=== PATIENT | male | born 1955 | race Caucasian/White ===

== ENCOUNTER 2019-01-26 13:46 | Observation (INO) | payer MEDICARE, MEDICAID ==
[~2019-01-26 13:46] MED LIST: ISOVUE-370 76%-LOCM 1 ML ONE
--- NOTE | 2019-01-26 14:33 | CT ---
CT PULMONARY ANGIOGRAM WITH IV CONTRAST AND 3-D POSTPROCESSING: HISTORY:Chest pain FINDINGS: There is good contrast opacification of the pulmonary arterial vasculature without filling defects to suggest pulmonary embolism. The thoracic aorta is well opacified without aneurysm or dissection. No pleural or pericardial effusions are seen. No pneumothoraces or lung nodules are noted. There are mild patchy groundglass opacities at the lung bases. There are degenerative changes in the spine. The distal esophagus appears distended. 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 IMPRESSION: No CT evidence of pulmonary embolism.
[2019-01-26] MEDS ORDERED: Vancomycin HCl 1.5 GM in Sodium Chloride 0.9% 250 ML 300 ML IVPB SCH (15:15)
[2019-01-26] MEDS ORDERED: Diabetic Tussin 200 MG/10 ML UDCUP PO PRN (16:29)
[2019-01-26] MEDS ORDERED: Cepastat Lozenges 1 LOZ PO PRN (16:29)
[2019-01-26] MEDS ORDERED: hydrALAZINE 20 MG/ML VIAL SLOW IVP PRN (16:29)
[2019-01-26] MEDS ORDERED: Loratadine 10 MG TAB PO PRN (16:29)
[2019-01-26] MEDS ORDERED: Bisacodyl 10 MG SUPP PR PRN (16:29)
[2019-01-26] MEDS ORDERED: Acetaminophen 650 MG Suppository PR PRN (16:29)
[2019-01-26] MEDS ORDERED: Calcium Carbonate 500 MG ChewTAB PO PRN (16:29)
[2019-01-26] MEDS ORDERED: Loperamide HCl 2 MG CAP PO PRN (16:29)
[2019-01-26] MEDS ORDERED: Acetaminophen 325 MG TAB PO PRN (16:29)
[2019-01-26] MEDS ORDERED: HYDROcodone/Acetaminophen 5/325 mg Tablet PO PRN (16:29)
[2019-01-26] MEDS ORDERED: Zolpidem Tartrate 5 MG TAB PO PRN (16:29)
[2019-01-26] MEDS ORDERED: Artificial Tears 18 DROP/0.9 ML EA EYE PRN (16:29)
[2019-01-26] MEDS ORDERED: Ondansetron PF 4 MG/2 ML Vial IVP PRN (16:29)
[2019-01-26] MEDS ORDERED: Senokot S 8.6-50 MG TAB PO PRN (16:29)
[2019-01-26] MEDS ORDERED: Ondansetron ODT 4 MG TAB PO PRN (16:29)
[2019-01-26 16:58] VITALS: BMI 40.9
[2019-01-26] MEDS ORDERED: cefTRIAXone\\ROCEPHIN 1 GM in Sodium Chloride 0.9% 100 ML IVPB SCH (17:00)
[2019-01-26] MEDS: Sodium Chloride 0.9% 1,000 ML IV SCH (17:02)
--- NOTE | 2019-01-26 17:13 | HP ---
PRIMARY CARE PHYSICIAN: Dr. You. REASON FOR ADMISSION: Transferred from [facility] for dysphagia and cellulitis. HISTORY OF PRESENT ILLNESS: A 63-year-old male who has underlying history of morbid obesity, who required right above-knee amputation, who was evaluated at [facility] for difficulty swallowing. The patient reports that yesterday he ate chicken and after that he had a macaroni and cheese, and he was not able to swallow. He was feeling some sticking sensation in substernal area in lower part. The patient describes his discomfort about 2/10, and the patient reports that he cannot swallow anything, and that is why he went to local emergency room for evaluation. In the emergency room, the patient had a chest x-ray and CT angiography, which were negative for any acute process. The patient also had routine blood test at [facility], which showed normal CBC and normal BMP and LFT. The patient denies any food stuck. He denies any weight loss. He denies any nausea, vomiting, or hematemesis. He denies any constipation, diarrhea, melena, or hematochezia. The patient reports that lately, he broke his prosthesis, and since then, he is wheelchair-bound and he had two cut in his left lower extremity from his wheelchair. He does report that he has chronic venous insufficiency, and his left lower extremity is chronically red. He denies any tenderness, fever, or chills. He denies any constipation, diarrhea, melena, or hematochezia. The patient is being admitted for observation. Com Writer evaluated this patient and the patient is planned for upper endoscopy later on today. The patient will be observed in hospital after procedure as well as to give him antibiotic therapy for cellulitis. REVIEW OF SYSTEMS: CONSTITUTIONAL: Negative for weight loss or gain, ability to conduct usual activities. SKIN: Negative for rash, itching. EYES: Negative for double vision, pain. ENT/MOUTH: Negative for nose bleeding, neck stiffness, pain, tenderness. CARDIOVASCULAR: Negative for palpitations, dyspnea on exertion, orthopnea. RESPIRATORY: Negative for shortness of breath, wheezing, cough, hemoptysis, fever or night sweats. GASTROINTESTINAL: Negative for poor appetite, abdominal pain, heartburn, nausea, vomiting, constipation, or diarrhea. GENITOURINARY: Negative for urgency, frequency, dysuria, nocturia. MUSCULOSKELETAL: Negative for pain, swelling. NEUROLOGIC/PSYCHIATRIC: Negative for anxiety, depression. ALLERGY/IMMUNOLOGIC: Negative for skin rash, bleeding tendency. Please see my HPI for pertinent positives and negatives. All other review of systems reviewed and negative except as mentioned in HPI. PAST MEDICAL HISTORY: History of right above-knee amputation, COPD, morbid obesity, hypertension, dyslipidemia, final stenosis. PAST SURGICAL HISTORY: Right above-knee surgery, right thumb surgery, history of bilateral knee surgery. PAST PSYCHIATRIC HISTORY: Anxiety and depression. SOCIAL HISTORY: The patient is living at [facility]. He drinks alcohol occasionally. He smokes about 1 to 2 packs per day. He denies any other illicit drug abuse. FAMILY HISTORY: No family history of coronary artery disease, stroke, or cancer. ALLERGIES: NO KNOWN DRUG ALLERGIES. CURRENT HOME MEDICATIONS: 1. Toprol-XL 12.5 mg twice daily. 2. Lisinopril 10 mg daily. 3. Flovent HFA one puff inhalation b.i.d. 4. Fluoxetine 40 mg daily. 5. Triamcinolone topical cream twice daily. 6. Vitamin D3 1000 units p.o. twice daily. 7. Simvastatin 10 mg p.o. daily. 8. Singulair 10 mg p.o. daily. EMERGENCY ROOM COURSE: The patient was given Ancef at other emergency room. The patient received vancomycin in our emergency room. PHYSICAL EXAMINATION: VITAL SIGNS: Currently, blood pressure 135/86, pulse 55, respiratory rate 20, temperature 97.8, saturation 95% on room air. Weight 127 kg. GENERAL: The patient is currently alert and oriented, no acute distress. HEENT: Head; normocephalic and atraumatic. Eyes; pupils are round, reactive to light. Extraocular muscle intact. ENT; oropharynx within normal limits. Moist mucous membranes. No oral lesion. No pharyngeal erythema. No exudate. NECK: Supple. No JVD. No thyromegaly. No carotid bruit. No jugular venous distention. LUNGS: Clear to auscultation without any rhonchi or rales. CARDIAC: S1 and S2 appears regular. No murmur. No gallop. No rub. ABDOMEN: Morbid obesity. Limiting examination. Bowel sounds present. Nontender. Nondistended. No organomegaly. No mass. No suprapubic tenderness. BACK: Unremarkable. No CVA tenderness. EXTREMITIES: Upper extremity, passive movement of all joints are normal. Lower extremity, right above-knee amputation. Left lower extremity noted two skin cut as well as erythema and swelling noted on left lower extremity with chronic skin changes on the left lower extremity. NEUROLOGIC: Nonfocal examination. SIGNIFICANT LABORATORY DATA: Chest x-ray based on my review, no acute cardiopulmonary process. CT angiography based on my review, no pulmonary embolism. CBC; WBC 9.6, hemoglobin 13.3, platelets 267. BMP; sodium 135, potassium 4.5, chloride 96, carbon dioxide 29, BUN 11, creatinine 0.77, glucose 130, calcium 9.4. LFT; AST 10, ALT 11, alkaline phosphatase 139, and albumin 4.1. Troponin less than 0.010. Lipase 20. ASSESSMENT AND PLAN: 1. Dysphagia, unclear etiology, suspected from food infection. Gastroenterology consulted and planning for EGD. After EGD, he will start diet as tolerated. 2. Left lower extremity cellulitis. The patient has chronic venous insufficiency and he has two skin cut in that area and erythema has worsen. We will continue with Rocephin 1 g q.24 hours and vancomycin as per pharmacy adjusted dose. Upon discharge, we will consider changing to Keflex. 3. Morbid obesity. Dietary education given. Weight loss education given. 4. Hypertension. We will continue lisinopril 10 mg daily. 5. Metoprolol 12.5 mg twice daily. 6. Dyslipidemia. We will continue Zocor 10 mg p.o. daily. 7. Anxiety and depression. We will continue Prozac 40 mg daily. 8. Vitamin D deficiency. We will continue vitamin D3 2000 units p.o. daily. 9. Chronic obstructive pulmonary disease. We will continue Dulera 2 puff inhalations b.i.d. DuoNeb q.6 hourly p.r.n. 10. Deep venous thrombosis prophylaxis. The patient will be given SCD boots as tolerated and Lovenox 40 mg subcu daily. 11. GI prophylaxis. Pepcid 20 mg p.o. b.i.d. CODE STATUS: The patient is full code. The patient does not have any surrogate decision maker. DISPOSITION PLAN: Based on clinical course, likely 24 hours. Plan of care discussed with the patient in detail. Job ID: [id number]
[2019-01-26] MEDS: Mometasone/Formoterol 120 PUFF INHALER INH SCH (19:44)
[2019-01-26] MEDS ORDERED: Famotidine 20 MG TAB PO SCH (21:00)
[2019-01-26] MEDS ORDERED: Famotidine/PF 20 mg/2ml Vial SLOW IVP SCH (21:00)
[2019-01-26] MEDS ORDERED: Simvastatin 5 MG TAB PO SCH (21:00)
[2019-01-26] MEDS ORDERED: Ondansetron PF 4 MG/2 ML Vial ONE (22:26)
[2019-01-26] MEDS ORDERED: Ondansetron HCl/PF 4 MG/2 ML Vial IVP PRN (22:29)
[2019-01-26] MEDS ORDERED: Promethazine HCl 25 MG/ML VIAL SLOW IVP PRN (22:29)
[2019-01-26] MEDS ORDERED: Promethazine HCl 25 MG/ML VIAL IM PRN (22:29)
[2019-01-26] MEDS: Metoprolol Tartrate 25 MG TAB PO SCH (23:03)
[2019-01-26] MEDS ORDERED: Sodium Chloride 0.9% (PF) 10 ML VIAL FS PRN (23:29)
[2019-01-26] MEDS ORDERED: Pantoprazole 40 MG VIAL IVP SCH (23:30)
[2019-01-27] MEDS: Sodium Chloride 0.9% 1,000 ML IV SCH ×2 (03:35→13:01)
[2019-01-27 06:12] LABS: #Eosinphils 0.2 thou/uL (0.0-0.7); #Lymphocytes 1.8 thou/uL (1.20-3.40); #Monocytes 0.6 thou/uL (0.11-0.59); #Neutrophils 6.8 thou/uL (1.40-6.50); %Basophils 0.1 % (0.0-1.0); %Eosinophils 1.9 % (0.0-10.0); %Lymphocytes 19.2 % (21.0-51.0); %Monocytes 6.4 % (0.0-10.0); %Neutrophils 72.4 % (42.0-75.0); Hemoglobin 12.9 g/dL (14.0-18.0); Mean Corpuscular HGB CONC 32.8 g/dL (32.0-36.0); Mean Corpuscular Hemoglobin 29.6 pg (27.0-31.0); Mean Corpuscular Volume 90.4 fL (78.0-98.0); Mean Platelet Volume 6.9 fL (7.4-10.4); Platelet Count 219 thou/uL (130-400); Red Blood Cell (RBC) Count 4.36 mill/uL (4.70-6.10); White Blood Cell (WBC) Count 9.4 thou/uL (4.8-10.8)
[2019-01-27 06:34] LABS: ALT (SGPT) 9 U/L (8-55); AST (SGOT) 10 U/L (5-34); Albumin 3.5 g/dL (3.4-4.8); Alkaline Phosphatase 132 U/L (40-110); Anion Gap 11 mmol/L (10-20); BUN (Urea Nitrogen) 9 mg/dL (8.4-25.7); Bilirubin, Total 0.8 mg/dL (0.2-1.2); Calc. Creatinine Clearance 195 mL/min (70-130); Calcium 8.3 mg/dL (7.8-10.44); Carbon Dioxide 25 mmol/L (23-31); Chloride 100 mmol/L (98-107); Estimated GFR-MDRD Greater than 90; Globulin 2.8 g/dL (2.4-3.5); Glucose 104 mg/dL (80-115); Protein, Total 6.3 g/dL (5.8-8.1); Sodium 132 mmol/L (136-145)
[2019-01-27] MEDS: Mometasone/Formoterol 120 PUFF INHALER INH SCH (07:02)
[2019-01-27] MEDS: Pantoprazole 40 MG VIAL IVP SCH ×3 (08:26→08:32)
[2019-01-27] MEDS: Metoprolol Tartrate 25 MG TAB PO SCH (08:26)
--- NOTE | 2019-01-27 08:36 | CON ---
DATE OF CONSULTATION: 01/26/2019 REASON FOR CONSULTATION: Dysphagia. HISTORY OF PRESENT ILLNESS: Mr. Vazquez is a 63-year-old gentleman who was transferred to this emergency room from the emergency room in [place], [place] where he presented today with complaints of difficulty swallowing. He states that beginning yesterday when he was eating lunch consisting of chicken and some other food, he could not swallow. He does not remember if he felt like food got stuck on his lung, but he could not swallow and anytime he would start to eat, he threw it up. He stated initially he could not drink water at all, but he is not having any problem handling his secretions and as per order he states he took his pills with some water this morning and it seemed to stay down and then he was able to drink some water slowly in [place]. He has no overt pain, but feels like something may be stuck in his throat area. He states in the past 2-1/2 months he has felt that a little discomfort or fullness in his throat area. He feels when the food goes down it gets down to mid chest region. However, he denies this ever happening in the past. Denies any heartburn. He denies any present pain. He denies any hematemesis. He denies any weight loss and he denies having chronic reflux. He has had no cough, throat pain, or drooling or difficulty handling secretions. He will open his mouth wide. He was transferred here for further evaluation and is found to have cellulitis in his left leg with some skin breakdown. Emergency room physician decided to admit him for that. PAST MEDICAL HISTORY: Previous right AK secondary to blood cot 3 years ago, history of cellulitis, history of lung disease, tobacco abuse, hyperlipidemia, hypertension, depression, spinal stenosis. PREVIOUS SURGICAL HISTORY: Orthopedic surgery, bilateral knee replacements, thumb surgery, right BK secondary to DVT, think he had a colonoscopy here, but I do not see that at [facility] or my office, possibly from family practice. SOCIAL HISTORY: He drinks socially, but not very much now. Apparently drank heavily in the past. Does not use drugs, but did apparently in the past according to an old note in the chart. Uses tobacco, smokes cigarettes, states he is trying to quit. Denies previous IV drug abuse. ALLERGIES: NONE KNOWN. MEDICATIONS: 1. Metoprolol. 2. Lisinopril. 3. Flovent. 4. Fluoxetine. 5. Triamcinolone. 6. Vitamin D3. 7. Simvastatin. 8. Singulair. PHYSICAL EXAMINATION: VITAL SIGNS: Blood pressure 131/61, pulse 83, temperature 97, respirations 18. GENERAL: The patient is sitting in the ER room comfortably. He is in no distress. He has a large zayas. He does not have a spit cup or emesis bag, he is spitting into. He speaks clearly. HEENT: Oropharynx without lesions. NECK: Supple without any adenopathy. LUNGS: With no stridor. Lungs are clear. ABDOMEN: Soft, somewhat protuberant, seems a little bit tight, but he states this is the way it always is tympanitic. There is no palpable hepatosplenomegaly. There is no overt hernia. EXTREMITIES: Reveal erythema and skin breakdowns, edema on the left leg. SKIN: He has a right-sided VKA. NEUROLOGIC: He is alert and oriented to person, place, and time. He is in no distress. LABORATORY DATA: White count 9.4, hemoglobin 13, platelet count 367. Sodium 135, potassium 4.5, BUN and creatinine 11 and 0.7. Liver function tests are normal. Alkaline phosphatase is 139. IMAGING STUDIES: He had a CTA of the chest with no evidence of pulmonary embolism. There is no comment on the esophagus and the chest on that report. My view of it, he has a hernia with quite a bit of food in the hernia pouch above the diaphragm. It is unclear if there is a bolus obstruction or not. ASSESSMENT: Dysphagia, unable to eat solid foods, handles secretions, really cannot drink much liquids, this apparently came on acutely yesterday. PLAN: EGD with anesthesia, endotracheal intubation. Risks, benefits, and possible complications were discussed with the patient. We will proceed later today if the OR allows, if not tomorrow. Job ID: [id number]
[2019-01-27] MEDS ORDERED: Enoxaparin Sodium 40 MG/0.4 ML SYRINGE SC SCH (09:00)
[2019-01-27] MEDS ORDERED: Saccharomyces boulardii 250 MG CAP PO SCH (09:00)
[2019-01-27] MEDS ORDERED: FLUoxetine HCl 20 MG CAP PO SCH (09:00)
[2019-01-27] MEDS ORDERED: Lisinopril 10 MG TAB PO SCH (09:00)
--- NOTE | 2019-01-27 10:11 | PRG ---
DATE OF SERVICE: 01/27/2019 SUBJECTIVE: Mr. Vazquez is not having any problem eating soft foods. He reiterates that he has not ever had any problems with dysphagia in the past. OBJECTIVE: VITAL SIGNS: Temperature 97, pulse 52, and blood pressure 118/65. ABDOMEN: Soft and nontender. He is obese. LABORATORY DATA: White count 9, hemoglobin 12, and platelet count 219. Comprehensive metabolic profile normal except for alkaline phosphatase of 132. ASSESSMENT: Status post removal of food impaction in the distal esophagus. No overt strictures. There was a little bit slow motility. I would say that he may need further evaluation of the upper GI, but he states it has never happened in the past. I think he can advance his diet once the cellulitis is controlled and he is discharged. He can follow up with Dr. Enrique Crews, my partner, whom he has seen in the past in the office. I would keep him on a PPI. At this time, we will sign off from a GI standpoint. If he is still in the hospital next week, we will follow up, and Dr. Booth will be available over the weekend if needed. We would slowly advance diet as tolerated. Job ID: [id number]
--- NOTE | 2019-01-27 11:49 | PDOC.HOSPP ---
- Subjective Encounter Date: 01/27/19 Encounter Time: 09:35 Subjective: Patient seen and examined. No new complaints. No overnight events - Objective Vital Signs & Weight: Vital Signs (12 hours) Temp Pulse Resp BP Pulse Ox 01/27/19 07:31 97.7 F 52 L 20 118/65 90 L 01/27/19 07:02 69 16 01/27/19 05:25 97.6 F 69 17 132/80 96 Weight Weight 293 lb 14.019 oz I&O: 01/26/19 01/27/19 01/28/19 06:59 06:59 06:59 Intake Total 10 Balance 10 Result Diagrams: 01/27/19 05:59 01/27/19 05:59 Hospitalist ROS - Review of Systems Eyes: denies: pain, vision change, conjunctivae inflammation, eyelid inflammation, redness, other ENT: denies: ear pain, ear discharge, nose pain, nose discharge, nose congestion , mouth pain, mouth swelling, throat pain, throat swelling, other Respiratory: denies: cough, dry, shortness of breath, hemoptysis, SOB with excertion, pleuritic pain, sputum, wheezing, other Cardiovascular: denies: chest pain, palpitations, orthopnea, paroxysmal noc. dyspnea, edema, light headedness, other Gastrointestinal: denies: nausea, vomiting, abdominal pain, diarrhea, constipation, melena, hematochezia, other Genitourinary: denies: dysuria, frequency, incontinence, hematuria, retention, other Musculoskeletal: denies: neck pain, shoulder pain, arm pain, back pain, hand pain, leg pain, foot pain, other Skin: denies: rash, lesions, dulce maria, bruising, other - Medication Medications: Active Medications Generic Name Dose Route Start Last Admin Trade Name Freq PRN Reason Stop Dose Admin Cholecalciferol 2,000 units 01/27/19 09:00 01/27/19 08:26 Vitamin D3 PO 2,000 units DAILY DAPHNIE Administration Enoxaparin Sodium 40 mg 01/27/19 09:00 01/27/19 08:26 Lovenox SC Not Given 0900 DAPHNIE Fluoxetine HCl 40 mg 01/27/19 09:00 01/27/19 08:25 Prozac PO 40 mg DAILY DAPHNIE Administration Ceftriaxone Sodium 1 gm/ 100 mls @ 200 mls/hr 01/26/19 17:00 01/26/19 17:24 Sodium Chloride IVPB 100 mls Q24HR DAPHNIE Administration Sodium Chloride 1,000 mls @ 100 mls/hr 01/26/19 16:29 01/27/19 03:35 Normal Saline 0.9% IV Not Given .Q10H DAPHNIE Vancomycin HCl 2 gm/ Sodium 500 mls @ 250 mls/hr 01/26/19 23:59 01/26/19 23: 24 Chloride IVPB 500 mls 1200,2359 DAPHNIE Administration Lisinopril 10 mg 01/27/19 09:00 01/27/19 08:26 Zestril PO 10 mg DAILY DAPHNIE Administration Metoprolol Tartrate 12.5 mg 01/26/19 21:00 01/27/19 08:26 Lopressor PO 12.5 mg BID DAPHNIE Administration Mometasone Furoate/Formoterol Fumar 1 puff 01/26/19 18:30 01/27/19 07:02 Dulera 200 Mcg/5 Mcg Inhaler INH 1 puff BID-RT DAPHNIE Administration Pantoprazole Sodium 40 mg 01/27/19 09:00 01/27/19 08:32 Protonix IVP 40 mg DAILY DAPHNIE Administration Saccharomyces Boulardii 250 mg 01/27/19 09:00 01/27/19 08:25 Florastor PO 250 mg DAILY DAPHNIE Administration Simvastatin 10 mg 01/26/19 21:00 01/26/19 23:03 Zocor PO Not Given HS DAPHNIE - Exam General Appearance: NAD, awake alert Eye: PERRL, anicteric sclera ENT: normocephalic atraumatic, no oropharyngeal lesions Neck: supple, symmetric, no JVD, no thyromegaly Heart: RRR, no murmur, no gallops, no rubs, normal peripheral pulses Respiratory: CTAB, no wheezes, no rales, no ronchi Gastrointestinal: soft, non-tender, non-distended, normal bowel sounds Extremities: no cyanosis Extremities - other findings: left leg cellulitis, right aka Skin: normal turgor, no lesions Neurological: no focal deficits Musculoskeletal: normal tone, normal strength Psychiatric: normal affect, normal behavior Hosp A/P (1) Dysphagia Code(s): R13.10 - DYSPHAGIA, UNSPECIFIED Status: Resolved (2) Cellulitis and abscess of left leg Code(s): L03.116 - CELLULITIS OF LEFT LOWER LIMB; L02.416 - CUTANEOUS ABSCESS OF LEFT LOWER LIMB Status: Acute (3) Morbid obesity Code(s): E66.01 - MORBID (SEVERE) OBESITY DUE TO EXCESS CALORIES Status: Chronic (4) Chronic venous insufficiency Status: Chronic (5) Alcohol abuse Code(s): F10.10 - ALCOHOL ABUSE, UNCOMPLICATED Status: Chronic (6) HTN (hypertension) Code(s): I10 - ESSENTIAL (PRIMARY) HYPERTENSION Status: Chronic (7) S/P AKA (above knee amputation) unilateral Code(s): Z89.619 - ACQUIRED ABSENCE OF UNSPECIFIED LEG ABOVE KNEE Status: Chronic - Plan old records reviewed/req, continue antibiotics change to keflex and doxy for 10 days dietary education given to prevent food inpaction home health for SN and PT medication reviewed as above symptomatic treatment discharge today
--- NOTE | 2019-01-27 12:00 | OP ---
DATE OF PROCEDURE: 01/26/2019 PREOPERATIVE DIAGNOSIS: Food bolus in the esophagus since around lunch yesterday. POSTPROCEDURE DIAGNOSES: Large amount of chicken stuck in the distal third of the esophagus. There does not appear to be an overt stricture to be dilated. The motility of the esophagus was somewhat poor. There were no masses or lesions. About 6 ounces of chicken poorly chewed was removed from the distal esophagus. Remainder of the EGD was normal. RECOMMENDATIONS: 1. Barium esophagram in 1-2 days to for esophageal motility, rule out achalasia. There appeared to be no tightness of the lower esophageal sphincter. 2. PPI therapy. 3. Small bites, soft food. The patient can follow up in the office after discharge in 1 to 2 weeks. ANESTHESIA: . DESCRIPTION OF PROCEDURE: The patient was explained of the risks, benefits and possible complications of endoscopy including perforation, reaction to medication, aspiration and informed consent was obtained. The patient was brought to endoscopy suite, where in standard fashion, he was intubated for protection. The endoscope was advanced through the esophagus. The food bolus was found in the distal esophagus. It was removed by a basket and the remainder was then pushed down in the stomach. In forward and retroflexed views, the GE junction was normal. The duodenum was normal to the third portion. The stomach was normal in distensibility and appearance. The suction was desufflated. The scope was removed. The patient was extubated and brought to recovery room in stable condition. Anesthesia and was excellent. Job ID: [id number]
--- NOTE | 2019-01-27 13:57 | DIS ---
DATE OF ADMISSION: 01/26/2019 DATE OF DISCHARGE: 01/27/2019 PRIMARY CARE PHYSICIAN: Dr. You. DISCHARGE DISPOSITION: Assisted living facility with home health. PRIMARY DISCHARGE DIAGNOSES: 1. Dysphagia due to food impaction, status post EGD and resolved. 2. Left lower extremity cellulitis. SECONDARY DISCHARGE DIAGNOSES: Morbid obesity with BMI of 41, history of right above-knee amputation, history of peripheral vascular disease, chronic venous insufficiency, hypertension, gastroesophageal reflux disease, and dyslipidemia. PRIMARY PROCEDURE/OPERATION: Upper endoscopy was performed by Dr. Sánchez, and the patient was found with food particle in his lower esophagus, which was disimpacted and CT angiography, which was unremarkable. SIGNIFICANT LABORATORY DATA: WBC 9.4, hemoglobin 12.9, and platelets 219. Sodium 132, potassium 4.0, BUN 9, creatinine 0.72, and calcium 8.3. LFT normal. DISCHARGE MEDICATIONS: New medications; 1. Keflex 250 mg q.6 hourly for 10 days. 2. Doxycycline 100 mg twice daily for 10 days. Continue following medications; 1. Fish oil 1 tablet daily. 2. Coenzyme Q10 of 100 mg daily. 3. Ascorbic acid 1 tablet daily. 4. Colace 100 mg b.i.d. 5. [place] 1 tablet q.6 hourly p.r.n. 6. Atarax 25 mg q.8 hourly p.r.n. 7. Metoprolol 12.5 mg b.i.d. 8. Multivitamin one tablet p.o. daily. 9. Protonix 40 mg daily. 10. MiraLAX 17 g p.o. daily. CONTRAINDICATION: None. CODE STATUS: Full code. INPATIENT NUT GRINDER: Dr. Sánchez was consulted while in hospital. TEST RESULTS PENDING ON DISCHARGE: None. ALLERGIES: NO KNOWN DRUG ALLERGIES. DISCHARGE PLAN: Posthospital, the patient will follow up with primary care physician. HOSPITAL COURSE: A 63-year-old male, who lives at assisted living facility, who was admitted for dysphagia. The patient was evaluated at [facility] for dysphagia. The patient's symptoms started after he ate rapidly chicken. He did not chew his chicken, and it was stuck in his lower part of esophagus and that was bothering him. The patient was evaluated by slubber runner, and they did upper endoscopy and found with chicken pieces, which were dislodged. Subsequently, the patient's symptoms completely improved. The patient is given instruction about diet and mechanical soft diet advised as well as the patient is advised to continue proton pump inhibitor daily basis. The patient was also having lower extremity erythema, but he was not having any tenderness or fever. The patient does have chronic venous insufficiency from morbid obesity and peripheral vascular insufficiency and that is why he has chronic skin changes. We suspected cellulitis, and he was given vancomycin and Rocephin while in hospital. On discharge, we changed to p.o. Keflex and doxycycline. The patient will continue all his previous medications. The patient is seen and examined at bedside today. The patient is overall medically stable for discharge. We are arranging home health for him for alf and PT. Job ID: [id number]
[2019-01-27 16:17] VITALS: BP 107/62; TEMP 97.3
== END 2019-01-27 16:22 | disposition home health service (06) ==
LOC: ERS 13:46 → T4-B 16:27
PROVIDERS: ADMIT Internal Medicine; ATTEND Internal Medicine
PROC: 0DC58ZZ Extirpation of Matter from Esophagus, Via Natural or Artificial Opening Endoscopic (ICD-10-PCS; principal; 2019-01-26)
DX: T18.128A Food in esophagus causing other injury, initial encounter (principal); I10 Essential (primary) hypertension; E78.5 Hyperlipidemia, unspecified; F41.8 Other specified anxiety disorders; F32.9 Major depressive disorder, single episode, unspecified; F17.210 Nicotine dependence, cigarettes, uncomplicated; E66.01 Morbid (severe) obesity due to excess calories; E55.9 Vitamin D deficiency, unspecified; J44.9 Chronic obstructive pulmonary disease, unspecified; I87.2 Venous insufficiency (chronic) (peripheral); Z68.41 Body mass index [BMI] 40.0-44.9, adult; Z79.899 Other long term (current) drug therapy
CPT/HCPCS: 43247; 71275; 80053; 85025; 94640 ×2; 94664; 96361; 96365; 96366; 96367; 96375; 96376 ×2; 99285; G0378 ×2; 36415; C9113; J0696; J2405; J3370; J3490; J7050; Q9966

== ENCOUNTER 2019-03-11 03:27 | Emergency (ER) | payer MEDICARE, MEDICAID ==
[2019-03-11] MEDS ORDERED: Albuterol Sulfate 2.5 mg/3 ml Neb ONE (03:45)
[2019-03-11 03:59] LABS: #Eosinphils 0.2 thou/uL (0.0-0.7); #Lymphocytes 2.5 thou/uL (1.20-3.40); #Monocytes 0.7 thou/uL (0.11-0.59); #Neutrophils 6.3 thou/uL (1.40-6.50); %Basophils 0.1 % (0.0-1.0); %Eosinophils 2.5 % (0.0-10.0); %Lymphocytes 25.3 % (21.0-51.0); %Monocytes 7.1 % (0.0-10.0); Hemoglobin 13.4 g/dL (14.0-18.0); Mean Corpuscular HGB CONC 32.9 g/dL (32.0-36.0); Mean Corpuscular Hemoglobin 29.4 pg (27.0-31.0); Mean Corpuscular Volume 89.3 fL (78.0-98.0); Mean Platelet Volume 7.2 fL (7.4-10.4); Platelet Count 291 thou/uL (130-400); RBC Distribution Width 13.3 % (11.5-14.5); Red Blood Cell (RBC) Count 4.56 mill/uL (4.70-6.10); White Blood Cell (WBC) Count 9.7 thou/uL (4.8-10.8)
[2019-03-11 04:21] LABS: ALT (SGPT) 10 U/L (8-55); AST (SGOT) 11 U/L (5-34); Albumin 3.9 g/dL (3.4-4.8); Alkaline Phosphatase 170 U/L (40-110); Anion Gap 12 mmol/L (10-20); BUN (Urea Nitrogen) 10 mg/dL (8.4-25.7); Bilirubin, Total 0.5 mg/dL (0.2-1.2); Calc. Creatinine Clearance 0 mL/min (70-130); Calcium 8.7 mg/dL (7.8-10.44); Carbon Dioxide 25 mmol/L (23-31); Chloride 103 mmol/L (98-107); Estimated GFR-MDRD Greater than 90; Globulin 2.9 g/dL (2.4-3.5); Glucose 135 mg/dL (80-115); Potassium 4.8 mmol/L (3.5-5.1); Protein, Total 6.8 g/dL (5.8-8.1); Sodium 135 mmol/L (136-145)
--- NOTE | 2019-03-11 07:57 | RAD ---
EXAM: Single view of the chest HISTORY: Shortness of breath for 3 months COMPARISON: 01/26/2019 FINDINGS: Single view of the chest shows an enlarged cardiomediastinal silhouette. There is no eviden ce of consolidation, mass, or pleural effusion. The bones are unremarkable. IMPRESSION: Cardiomegaly
== END 2019-03-11 06:53 | disposition home or self-care (01) ==
LOC: ERS 03:27
DX: R06.00 Dyspnea, unspecified (principal); J44.9 Chronic obstructive pulmonary disease, unspecified; I10 Essential (primary) hypertension; F32.9 Major depressive disorder, single episode, unspecified; F17.210 Nicotine dependence, cigarettes, uncomplicated; Z79.51 Long term (current) use of inhaled steroids; Z79.899 Other long term (current) drug therapy
CPT/HCPCS: 36415; 71045; 80053; 83880; 84484; 85025; 93005; J7611; J7620

== ENCOUNTER 2019-03-15 03:03 | Inpatient (IN) | payer MEDICARE, MEDICAID ==
[2019-03-15 03:49] LABS: #Lymphocytes 1.8 thou/uL (1.20-3.40); #Monocytes 0.8 thou/uL (0.11-0.59); #Neutrophils 12.3 thou/uL (1.40-6.50); %Basophils 0.2 % (0.0-1.0); %Eosinophils 0.2 % (0.0-10.0); %Lymphocytes 11.9 % (21.0-51.0); %Monocytes 5.5 % (0.0-10.0); %Neutrophils 82.3 % (42.0-75.0); Hemoglobin 13.8 g/dL (14.0-18.0); Mean Corpuscular Hemoglobin 29.3 pg (27.0-31.0); Mean Corpuscular Volume 88.9 fL (78.0-98.0); Mean Platelet Volume 7.1 fL (7.4-10.4); Platelet Count 258 thou/uL (130-400); RBC Distribution Width 13.3 % (11.5-14.5); White Blood Cell (WBC) Count 14.9 thou/uL (4.8-10.8)
[2019-03-15 04:10] LABS: ALT (SGPT) 12 U/L (8-55); AST (SGOT) 13 U/L (5-34); Albumin 4.1 g/dL (3.4-4.8); Alkaline Phosphatase 170 U/L (40-110); Anion Gap 16 mmol/L (10-20); BUN (Urea Nitrogen) 15 mg/dL (8.4-25.7); Bilirubin, Total 0.9 mg/dL (0.2-1.2); Calc. Creatinine Clearance 0 mL/min (70-130); Calcium 9.1 mg/dL (7.8-10.44); Carbon Dioxide 23 mmol/L (23-31); Chloride 98 mmol/L (98-107); Estimated GFR-MDRD Greater than 90; Globulin 2.9 g/dL (2.4-3.5); Glucose 186 mg/dL (80-115); Potassium 4.8 mmol/L (3.5-5.1); Sodium 132 mmol/L (136-145)
[2019-03-15] MEDS ORDERED: cefTRIAXone\\ROCEPHIN 2 GM VIAL ONE (04:10)
[2019-03-15] MEDS ORDERED: Azithromycin 500 MG VIAL ONE (04:52)
[2019-03-15] MEDS ORDERED: Bacteriostatic Water 30 ML VIAL FS PRN (05:05)
--- NOTE | 2019-03-15 05:40 | PDOC.EVN ---
Event Note - Event Note Event Note: [id number]
--- NOTE | 2019-03-15 09:37 | RAD ---
CHEST 1 VIEW PORTABLE: Date: 03/15/19 HISTORY: Dyspnea. Difficulty breathing. COMPARISON: 03/11/19. FINDINGS: Minimal increased markings bilaterally. Evidence of right-sided healed rib fractures. Heart size is w ithin normal limits. No confluent lobar pneumonia, acute edema, or significant pleural effusion. IMPRESSION: Stable appearing chronic changes. No pneumonia or other acute process. POS: [facility]
--- NOTE | 2019-03-15 11:12 | HP ---
CHIEF COMPLAINT: Shortness of breath. HISTORY OF PRESENT ILLNESS: Mr. Vazquez is a 63-year-old male with past medical history of hyperlipidemia, hypertension ? 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 EMS reports to do DuoNeb and supplemental oxygen en route after hearing expiratory wheeze. The patient was seen in the ED 3 days ago for similar complaints. Workup in the emergency room, the patient was in respiratory distress, wheezing. Started on DuoNeb, IV steroids. Chest x-ray showed possible left lower lobe infiltrates suspicious of pneumonia. Septic workup done in the ED. The patient was started on IV antibiotics. The patient is being admitted to hospital for further management. PAST MEDICAL HISTORY: 1. Hypertension. 2. Deep venous thrombosis. 3. Hyperlipidemia. 4. Cigarette smoker. PAST SURGICAL HISTORY: 1. Bilateral knee surgery. 2. Right thumb surgery. 3. Right below-knee amputation secondary to deep venous thrombosis. SOCIAL HISTORY: The patient smokes 1 pack per day. FAMILY HISTORY: Reviewed and noncontributory. ALLERGIES: NO KNOWN ALLERGIES. HOME MEDICATIONS: Please see home medication reconciliation form for updated medications. REVIEW OF SYSTEMS: Review of 14 systems negative except what is mentioned in History of Present Illness. PHYSICAL EXAMINATION: GENERAL: The patient is awake, alert, in moderate respiratory distress. VITAL SIGNS: Blood pressure 117/71, pulse is 77, respiratory rate is 21, and temperature is 100.2. HEAD AND NECK: Normocephalic, atraumatic. Neck is supple. No JVD. CHEST: Bilateral expiratory wheeze. HEART: S1 and S2. Regular. ABDOMEN: Obese, soft. Bowel sounds present. NEUROLOGIC: Awake, alert, and oriented x3. PSYCH: Normal mood. EXTREMITIES: Right below-knee amputation. LABORATORY DATA: Sodium 132, glucose 186. WBC count elevated at 14.9, hemoglobin 13.8, and platelets 258. IMAGING DATA: Chest x-ray, as mentioned above in History of Present Illness. ASSESSMENT: 1. Acute exacerbation of chronic obstructive pulmonary disease. 2. Pneumonia, left lower lobe. 3. Cigarette smoker. 4. Hypertension. 5. Hyperlipidemia. 6. History of deep venous thrombosis. PLAN: 1. Admit. 2. Septic workup including blood cultures. 3. Continue with IV antibiotics, ceftriaxone and azithromycin. 4. DuoNeb scheduled and as needed. 5. IV steroids. 6. Reconcile home medications. 7. DVT prophylaxis as appropriate. 8. Expected length of stay at least 1 midnight if the patient's condition show significant clinical improvement. Job ID: [id number]
[2019-03-15] MEDS ORDERED: methylPREDNISolone Sod Succ 40 MG VIAL ONE (12:27)
[2019-03-15] MEDS: methylPREDNISolone Sod Succ 40 MG VIAL IVP SCH ×4 (12:40→23:49)
[2019-03-15 16:29] VITALS: BMI 37.6
[2019-03-16] MEDS: cefTRIAXone\\ROCEPHIN 1 GM in Sodium Chloride 0.9% 100 ML IVPB SCH (05:17)
[2019-03-16] MEDS: methylPREDNISolone Sod Succ 40 MG VIAL IVP SCH (06:29)
[2019-03-16] MEDS: Azithromycin 500 MG in Sodium Chloride 0.9% 250 ML 250 ML IVPB SCH (06:41)
[2019-03-16 08:22] LABS: #Lymphocytes 1.1 thou/uL (1.20-3.40); #Monocytes 0.5 thou/uL (0.11-0.59); #Neutrophils 12.3 thou/uL (1.40-6.50); %Lymphocytes 7.8 % (21.0-51.0); %Monocytes 3.6 % (0.0-10.0); %Neutrophils 88.5 % (42.0-75.0); Hemoglobin 13.3 g/dL (14.0-18.0); Hemoglobin A1c 6.2 % (4.0-6.0); Mean Corpuscular HGB CONC 32.9 g/dL (32.0-36.0); Mean Corpuscular Hemoglobin 29.5 pg (27.0-31.0); Mean Corpuscular Volume 89.7 fL (78.0-98.0); Mean Platelet Volume 7.4 fL (7.4-10.4); Platelet Count 263 thou/uL (130-400); RBC Distribution Width 13.1 % (11.5-14.5); Red Blood Cell (RBC) Count 4.49 mill/uL (4.70-6.10); White Blood Cell (WBC) Count 13.9 thou/uL (4.8-10.8)
[2019-03-16 08:28] LABS: Anion Gap 14 mmol/L (10-20); BUN (Urea Nitrogen) 16 mg/dL (8.4-25.7); Calc. Creatinine Clearance 162 mL/min (70-130); Calcium 9.1 mg/dL (7.8-10.44); Carbon Dioxide 23 mmol/L (23-31); Chloride 101 mmol/L (98-107); Estimated GFR-MDRD Greater than 90; Glucose 251 mg/dL (80-115); Potassium 4.3 mmol/L (3.5-5.1); Sodium 134 mmol/L (136-145)
[2019-03-16] MEDS ORDERED: Betamethasone 0.1% Cream 15 GM TUBE TOP SCH (09:45)
[2019-03-16] MEDS ORDERED: Montelukast Sodium 10 mg Tablet PO SCH (09:45)
[2019-03-16] MEDS ORDERED: Lisinopril 10 MG TAB PO SCH (09:45)
[2019-03-16] MEDS ORDERED: FLUoxetine HCl 20 MG CAP PO SCH (09:45)
[2019-03-16] MEDS ORDERED: Metoprolol Tartrate 25 MG TAB PO SCH (09:45)
--- NOTE | 2019-03-16 10:11 | PRG ---
DATE OF SERVICE: SUBJECTIVE: The patient is seen and examined at the bedside. He complains about a lot of cough and mucus production this morning. Also, he felt like his heart twinged this morning. He did not have any chest pain. OBJECTIVE: VITAL SIGNS: Blood pressure is 144/84, pulse is 90, respirations 18, temperature is 98.1, O2 saturation is 93% on room air. HEENT: His head is atraumatic and normocephalic. Eyes are PERRLA. Sclerae are nonicteric. Oral mucosa is moist. NECK: Supple, obese. LUNGS: Few rales. Wheezing, bilateral both bases, mild. HEART: S1, S2 normal. No S3. No S4. ABDOMEN: Obese, soft, nontender. Bowel sounds are present. EXTREMITIES: Above the knee amputee status. Left lower extremity wrapped in the foot and calf area with an Kaushik wrap secondary to his left heel open area. NEUROLOGIC: He follows my commands. He moves his extremities. LABORATORY DATA: White count of 13.9, hemoglobin of 13.3, hematocrit 40.3, platelet count 263,000. Sodium of 134, potassium 4.3, chloride 101, CO2 of 23, BUN 16, creatinine 0.80, glucose 251. Hemoglobin A1c 6.2. Calcium 9.1, creatinine 0.8, and BUN of 16. Microbiology, two blood cultures are negative. IMPRESSION: 1. Acute exacerbation of chronic obstructive pulmonary disease. 2. Questionable pneumonia. 3. Hypertension. 4. Hyperlipidemia. 5. History of deep venous thrombosis. 6. Cigarette smoker. 7. Right above the knee amputee status. PLAN: Continue his antibiotics, ceftriaxone, and azithromycin. Continue DuoNeb, change to schedule every 4 hours. Continue IV steroids. Do PFTs, electrocardiogram, and DVT prophylaxis. Job ID: [id number]
[2019-03-16] MEDS: Mometasone 100 MCG HFA INHALER INH SCH (18:50)
[2019-03-16] MEDS: Simvastatin 5 MG TAB PO SCH (19:56)
[2019-03-16] MEDS: Metoprolol Tartrate 25 MG TAB PO SCH (19:56)
[2019-03-16] MEDS: Betamethasone 0.1% Cream 15 GM TUBE TOP SCH (19:59)
[2019-03-17] MEDS: Azithromycin 500 MG in Sodium Chloride 0.9% 250 ML 250 ML IVPB SCH (05:19)
[2019-03-17] MEDS: cefTRIAXone\\ROCEPHIN 1 GM in Sodium Chloride 0.9% 100 ML IVPB SCH (06:19)
[2019-03-17] MEDS: predniSONE 20 MG TAB PO SCH (08:38)
[2019-03-17] MEDS: FLUoxetine HCl 20 MG CAP PO SCH (08:40)
[2019-03-17] MEDS: Lisinopril 10 MG TAB PO SCH (08:40)
[2019-03-17] MEDS: Metoprolol Tartrate 25 MG TAB PO SCH ×2 (08:41→20:27)
[2019-03-17] MEDS: Montelukast Sodium 10 mg Tablet PO SCH (08:42)
[2019-03-17] MEDS: Betamethasone 0.1% Cream 15 GM TUBE TOP SCH ×2 (08:45→20:28)
[2019-03-17] MEDS: Mometasone 100 MCG HFA INHALER INH SCH (19:03)
--- NOTE | 2019-03-17 20:03 | PDOC.HOSPP ---
- Subjective Encounter Date: 03/17/19 Encounter Time: 11:40 Subjective: Pt seen for followup re:COPD exacerbation. Feels slightly better. - Objective Vital Signs & Weight: Vital Signs (12 hours) Temp Pulse Resp BP BP Pulse Ox 03/17/19 19:31 93 L 03/17/19 19:16 98.1 F 62 20 143/80 H 93 L 03/17/19 19:04 94 L 03/17/19 19:03 94 L 03/17/19 12:56 56 L 20 96 03/17/19 08:40 115/77 Weight Admit Weight 270 lb Weight 270 lb I&O: 03/16/19 03/17/19 03/18/19 06:59 06:59 06:59 Intake Total 100 1350 Output Total 800 Balance 100 550 Result Diagrams: 03/16/19 07:59 03/16/19 07:59 Additional Labs: Labs and MARs reviewed by me Hospitalist ROS - Review of Systems Respiratory: reports: cough, dry, wheezing. denies: shortness of breath, hemoptysis, SOB with excertion, pleuritic pain, sputum Cardiovascular: denies: chest pain, palpitations, orthopnea, paroxysmal noc. dyspnea, edema, light headedness - Medication Medications: Active Medications Generic Name Dose Route Start Last Admin Trade Name Freq PRN Reason Stop Dose Admin Albuterol/Ipratropium 3 ml 03/15/19 07:00 03/17/19 19:04 Duoneb NEB 3 ml [id number] DAPHNIE Administration Betamethasone Valerate 0 gm 03/16/19 21:00 03/17/19 08:45 Valisone 0.1% Cream TOP Not Given BID DAPHNIE Cholecalciferol 2,000 units 03/17/19 09:00 03/17/19 08:40 Vitamin D3 PO 2,000 units DAILY DAPHNIE Administration Fluoxetine HCl 40 mg 03/17/19 09:00 03/17/19 08:40 Prozac PO 40 mg DAILY DAPHNIE Administration Azithromycin 500 mg/ Sodium 250 mls @ 250 mls/hr 03/16/19 06:00 03/17/19 05: 19 Chloride IVPB 250 mls 0600 DAPHNIE Administration Ceftriaxone Sodium 1 gm/ 100 mls @ 200 mls/hr 03/16/19 05:00 03/17/19 06:19 Sodium Chloride IVPB 100 mls 0500 DAPHNIE Administration Lisinopril 10 mg 03/17/19 09:00 03/17/19 08:40 Zestril PO 10 mg DAILY DAPHNIE Administration Metoprolol Tartrate 12.5 mg 03/16/19 21:00 03/17/19 08:41 Lopressor PO 12.5 mg BID DAPHNIE Administration Mometasone Furoate 1 puff 03/17/19 06:30 03/17/19 19:03 Asmanex Hfa 100 Mcg INH 1 puff BID-RT DAPHNIE Administration Montelukast Sodium 10 mg 03/17/19 09:00 03/17/19 08:42 Singulair PO 10 mg DAILY DAPHNIE Administration Prednisone 40 mg 03/17/19 08:00 03/17/19 08:38 Prednisone PO 40 mg QAM-WM DAPHNIE Administration Simvastatin 10 mg 03/16/19 21:00 03/16/19 19:56 Zocor PO 10 mg HS DAPHNIE Administration - Exam General - other findings: Obese Eye: anicteric sclera ENT: moist mucosa Neck: supple, no JVD Heart: RRR Respiratory: wheezes Gastrointestinal: soft, non-tender Extremities: no cyanosis Psychiatric: normal affect, normal behavior Hosp A/P (1) COPD exacerbation Code(s): J44.1 - CHRONIC OBSTRUCTIVE PULMONARY DISEASE W (ACUTE) EXACERBATION Status: Acute (2) Hyponatremia Code(s): E87.1 - HYPO-OSMOLALITY AND HYPONATREMIA Status: Acute (3) Obesity (BMI 30-39.9) Code(s): E66.9 - OBESITY, UNSPECIFIED Status: Chronic (4) HTN (hypertension) Code(s): I10 - ESSENTIAL (PRIMARY) HYPERTENSION Status: Chronic - Plan continue antibiotics, respiratory therapy, out of bed/ambulate Continue oxygen, steroids, bronchodilators and antibiotics. Walking program for ambulation. Hyponatremia mild, likely asymptomatic. Change status to inpatient. Check AM labs.
[2019-03-17] MEDS: Simvastatin 5 MG TAB PO SCH (20:27)
[2019-03-18] MEDS: cefTRIAXone\\ROCEPHIN 1 GM in Sodium Chloride 0.9% 100 ML IVPB SCH (05:11)
[2019-03-18] MEDS: Azithromycin 500 MG in Sodium Chloride 0.9% 250 ML 250 ML IVPB SCH (05:12)
[2019-03-18] MEDS: Mometasone 100 MCG HFA INHALER INH SCH ×2 (06:39→19:43)
[2019-03-18] MEDS ORDERED: Milk Of Magnesia 30 ML UDCUP PO PRN (07:03)
[2019-03-18] MEDS: Lisinopril 10 MG TAB PO SCH (08:16)
[2019-03-18] MEDS: predniSONE 20 MG TAB PO SCH (08:17)
[2019-03-18] MEDS: Metoprolol Tartrate 25 MG TAB PO SCH ×2 (08:17→20:03)
[2019-03-18] MEDS: FLUoxetine HCl 20 MG CAP PO SCH (08:17)
[2019-03-18] MEDS: Montelukast Sodium 10 mg Tablet PO SCH (08:17)
[2019-03-18] MEDS: Betamethasone 0.1% Cream 15 GM TUBE TOP SCH ×2 (08:18→20:00)
[2019-03-18 08:23] LABS: #Lymphocytes 2.6 thou/uL (1.20-3.40); #Monocytes 0.6 thou/uL (0.11-0.59); #Neutrophils 5.9 thou/uL (1.40-6.50); %Basophils 0.3 % (0.0-1.0); %Eosinophils 0.5 % (0.0-10.0); %Lymphocytes 28.6 % (21.0-51.0); %Monocytes 6.9 % (0.0-10.0); %Neutrophils 63.7 % (42.0-75.0); Hemoglobin 13.3 g/dL (14.0-18.0); Mean Corpuscular Hemoglobin 29.2 pg (27.0-31.0); Mean Corpuscular Volume 88.5 fL (78.0-98.0); Mean Platelet Volume 7.2 fL (7.4-10.4); Platelet Count 259 thou/uL (130-400); Red Blood Cell (RBC) Count 4.56 mill/uL (4.70-6.10); White Blood Cell (WBC) Count 9.2 thou/uL (4.8-10.8)
[2019-03-18 08:39] LABS: Anion Gap 11 mmol/L (10-20); BUN (Urea Nitrogen) 15 mg/dL (8.4-25.7); Calc. Creatinine Clearance 180 mL/min (70-130); Calcium 8.6 mg/dL (7.8-10.44); Carbon Dioxide 28 mmol/L (23-31); Chloride 99 mmol/L (98-107); Estimated GFR-MDRD Greater than 90; Glucose 102 mg/dL (80-115); Sodium 134 mmol/L (136-145)
[2019-03-18] MEDS ORDERED: Zolpidem Tartrate 5 MG TAB PO PRN (09:53)
--- NOTE | 2019-03-18 10:58 | PRG ---
DATE OF SERVICE: 03/18/2019 SUBJECTIVE: The patient is seen and examined at the bedside. He is significantly improved since the time of admission. He is still making a lot of phlegm which is mostly mucus. OBJECTIVE: VITAL SIGNS: Blood pressure is 118/74, pulse is 73, temperature is 97.9, respirations 18, O2 saturations are 92% on room air. HEAD: Atraumatic and normocephalic. Eyes are PERRLA. Sclerae are nonicteric. Oral mucosa is moist. NECK: Supple. LUNGS: Emphysematous. No wheezing. HEART: S1 and S2 normal. No S3. No S4. ABDOMEN: Obese, nontender. EXTREMITIES: Right [id number] amputee status in right lower extremity and contracted right upper extremity. NEUROLOGICAL: He is alert and oriented x4. There is no any motor or sensory deficits. Cranial nerves are intact. LABORATORY DATA: Labs showed white count of 9.2, hemoglobin of 13.3, hematocrit 40.3, platelet count is 259,000. Sodium is 134, and the rest of chemistry is within normal limits. His hemoglobin A1c 6.2. Microbiology, no growth on two blood cultures. IMPRESSION: 1. Acute exacerbation of chronic obstructive pulmonary disease. 2. Hypertension. 3. Hyperlipidemia. 4. History of deep venous thrombosis. 5. Cigarette smoker. 6. Right above the knee amputee status. PLAN: He is improving slowly, but gradually I think he should be ready to be discharged in the next 24 to 48 hours, but PFTs were not done because they were not done anymore in the hospital. An electrocardiogram was done which did not show any abnormalities. We will continue his ceftriaxone and azithromycin along with DuoNebs and he is switched to oral prednisone 40 mg daily. We will continue his inhaled steroids. Job ID: [id number]
[2019-03-18] MEDS: Simvastatin 5 MG TAB PO SCH (20:03)
[2019-03-19] MEDS: cefTRIAXone\\ROCEPHIN 1 GM in Sodium Chloride 0.9% 100 ML IVPB SCH (05:53)
[2019-03-19] MEDS: Azithromycin 500 MG in Sodium Chloride 0.9% 250 ML 250 ML IVPB SCH (05:54)
[2019-03-19] MEDS: Mometasone 100 MCG HFA INHALER INH SCH (06:40)
[2019-03-19 07:18] VITALS: TEMP 97.8
[2019-03-19] MEDS: Betamethasone 0.1% Cream 15 GM TUBE TOP SCH (07:56)
[2019-03-19] MEDS: Montelukast Sodium 10 mg Tablet PO SCH (07:57)
[2019-03-19] MEDS: FLUoxetine HCl 20 MG CAP PO SCH (07:57)
[2019-03-19] MEDS: Metoprolol Tartrate 25 MG TAB PO SCH (07:58)
[2019-03-19] MEDS: predniSONE 20 MG TAB PO SCH (07:58)
[2019-03-19] MEDS: Lisinopril 10 MG TAB PO SCH (07:58)
[2019-03-19 08:01] VITALS: BP 115/77
--- NOTE | 2019-03-20 12:19 | DIS ---
DATE OF ADMISSION: 03/17/2019 DATE OF DISCHARGE: 03/19/2019 FINAL DIAGNOSES: 1. Acute exacerbation of chronic obstructive pulmonary disease. 2. Hypertension. 3. Hyperlipidemia. 4. History of deep venous thrombosis. 5. Right [id number] amputee status. HOSPITAL COURSE: The patient was a 63-year-old male, who was admitted to the hospital with complaints of shortness of breath. The patient was presented to the emergency room and evaluated there and was found to have possible left lower lobe infiltrate, which was suspicious for pneumonia. He had septic workup done in the emergency room. He was started on IV antibiotics and got admitted to the hospital for further evaluation. At the time of evaluation, his sodium was 132 and glucose 186. WBC count was 14.9, hemoglobin 13.8, and platelet count was 258. He was placed on ceftriaxone and azithromycin, on DuoNebs, IV steroids, and he got admitted to the hospital. His 2 sets of blood cultures came back negative. His white count went down to normal range. Yesterday, it was 9.2. His kidney function was good, and his hyponatremia improved from 132 to 134. His hemoglobin A1c came back at 6.2. The patient improved gradually. He is doing well today. His blood pressure is 115/77, temperature is 97.8, pulse is 52 to 58 fluctuating, that is most likely secondary to his beta raina use and he is saturating 94% on room air. He is seen and examined before his discharge. DISPOSITION: Home. ACTIVITIES: As tolerated. DIET: Heart healthy. MEDICATIONS AT THE TIME OF DISCHARGE: 1. Omnicef 300 mg twice a day for 5 days. 2. Prednisone 30 mg daily x2 days, then 20 mg daily x2 days, then 10 mg daily x2 days. 3. Metoprolol at the same dose that he was taking at home. 4. Lisinopril 10 mg once a day. 5. Vitamin D3 of 2000 units once a day. 6. Fluoxetine 40 mg daily. 7. Flovent 110 mcg twice a day. 8. Montelukast 10 mg. 9. Combivent 2 puffs q.4 hours p.r.n. as needed. 10. Asmanex 1 puff twice a day. FOLLOWUP: He is going to follow up with primary care physician in 1 week. TIME SPENT: Time spent on this discharge is less than 30 minutes. Job ID: [id number]
--- NOTE | 2019-03-21 21:23 | PQF ---
[employer] Crystal Reports Winform ViewerBARONMIKE HERNANDEZ LANCE DUTTON MD [id number] [facility] [id number] CLINICAL DOCUMENTATION CLARIFICATION FORM: POST DISCHARGE Addendum to original discharge summary date: ____ Late entry note date: __ DATE: 03/21/2019 ATTN: LANCE GILBERT MD Please exercise your independent, professional judgment in responding to the clarification form. Clinical indicators are provided on the bottom of this form for your review Please check appropriate box(s) to clarify if the following diagnosis has been ruled in or ruled out: ___PNEUMONIA___(CDI/Coding list diagnosis here) [ ] Ruled in diagnosis [ ] Continue to treat [ ] Resolved [ x ] Ruled out diagnosis [ ] Cannot rule out diagnosis [ ] Other diagnosis [ ] Unable to determine In addition, please specify: Present on Admission (POA): [ x ] Yes [ ] No [ ] Unable to determine For continuity of documentation, please document condition throughout progress notes and discharge summary. Thank You. CLINICAL INDICATORS - SIGNS / SYMPTOMS / LABS Shortness of breath - Documented in H&P on 03/15 by Mendoza Donaldson Chest x ray shows possible left lower infiltrates suspicious of pneumonia - Documented in H&P on 03/15 by Mendoza Donaldson Pneumonia Left lower lobe - Documented in H&P on 03/15 by Mendoza Donaldson His white count went down normal - Documented in DS on 03/19 by LANCE GILBERT MD RISK FACTORS COPD exacerbation HTN TREATMENTS Chest X ray Ceftriaxone 2gm-Medication report Azithromycin 500 mg - Medication report [employer] Reports Winform Viewer (This form is maintained as a part of the permanent medical record) 2014 [employer]. All Rights Reserved [email or web address] [not provided] MTDD
--- NOTE | 2019-03-27 17:06 | EKG ---
Test Reason : Blood Pressure : / mmHG Vent. Rate : 058 BPM Atrial Rate : 058 BPM P-R Int : 174 ms QRS Dur : 078 ms QT Int : 408 ms P-R-T Axes : 066 051 068 degrees QTc Int : 400 ms Sinus bradycardia Otherwise normal ECG When compared with ECG of 15-MAR-2019 03:29, (Unconfirmed) Vent. rate has decreased BY 30 BPM Confirmed by ABBY HAM M.D. ([id number]) on 03/27/2019 5:06:19 PM Referred By: VLADIMIR Confirmed By:ABBY HAM M.D.
== END 2019-03-19 13:20 | disposition home or self-care (01) | DRG 191 ==
LOC: ERS 03:03 → ERHOLD 04:42 → T4-A 16:18 → OBSVTOIN 03-17 08:54
PROVIDERS: ADMIT Internal Medicine; ATTEND Internal Medicine
DX: J44.1 Chronic obstructive pulmonary disease with (acute) exacerbation (principal); E87.1 Hypo-osmolality and hyponatremia; E78.5 Hyperlipidemia, unspecified; J44.0 Chronic obstructive pulmonary disease with (acute) lower respiratory infection; I10 Essential (primary) hypertension; F17.210 Nicotine dependence, cigarettes, uncomplicated; E66.9 Obesity, unspecified; Z89.511 Acquired absence of right leg below knee; Z68.37 Body mass index [BMI] 37.0-37.9, adult
CPT/HCPCS: 36415; 71045; 80048; 80053; 83036; 83605; 83880; 84484; 85025; 87040; 93005; 93010; 94664; 96365; 96367; J0456; J0696; J2920; J3490; J7050; J7512; J7620